=== PATIENT | female | born 1995 | race Two or more races ===

== ENCOUNTER 2017-07-24 08:06 | Emergency (ER) | payer OTHER ==
[~2017-07-24] VITALS: Ht 160 cm; Wt 68.1 kg
[2017-07-24 08:06] VITALS: BP 116/72
[2017-07-24] MEDS ORDERED: PROPARACAINE OPHTH 0.5%, 15ML EACHEYE ONE (08:30)
[2017-07-24] MEDS ORDERED: FLUORESCEIN OPHTHALMIC 1 MG STRIP EACHEYE ONE (08:30)
[2017-07-24] MEDS ORDERED: FLUORESCEIN OPHTHALMIC 1 MG STRIP ONE (08:33)
[2017-07-24] MEDS ORDERED: PROPARACAINE OPHTH 0.5%, 15ML ONE (08:33)
== END 2017-07-24 09:12 | disposition home or self-care (01) ==
LOC: ED 09:09
DX: B30.8 Other viral conjunctivitis (principal); B97.89 Other viral agents as the cause of diseases classified elsewhere
CPT/HCPCS: 99283